=== PATIENT | female | born 1945 | race Caucasian/White ===

== ENCOUNTER 2016-12-19 10:43 | Outpatient (RCR) | payer MEDICARE, OTHER ==
[2016-12-19 11:06] LABS: BASOPHILS % (AUTO) 1 % (0-10); EOSINOPHILS # (AUTO) 0.3 10^3/uL (0.0-0.3); EOSINOPHILS % (AUTO) 6 % (0-10); LYMPHOCYTES # (AUTO) 1.6 X 10^3 (1.0-4.0); LYMPHOCYTES % (AUTO) 30 % (12-44); MEAN CORPUSCULAR HEMOGLOBIN 30 PG (25-34); MEAN CORPUSCULAR HGB CONC 35 G/DL (32-36); MEAN CORPUSCULAR VOLUME 85 FL (80-99); MEAN PLATELET VOLUME 9.4 FL (7.4-10.4); MONOCYTES # (AUTO) 0.4 X 10^3 (0.0-1.0); MONOCYTES % (AUTO) 8 % (0-12); NEUTROPHILS # (AUTO) 2.9 X 10^3 (1.8-7.8); NEUTROPHILS % (AUTO) 56 % (42-75); PLATELET COUNT 288 10^3/uL (130-400); RED BLOOD COUNT 4.58 10^6/uL (4.35-5.85); RED CELL DISTRIBUTION WIDTH 13.7 % (10.0-14.5); WHITE BLOOD COUNT 5.2 10^3/uL (4.3-11.0)
[2016-12-19 11:34] LABS: ALBUMIN 4.4 G/DL (3.2-4.5); BILIRUBIN,TOTAL 0.5 MG/DL (0.1-1.0); CALCIUM 9.5 MG/DL (8.5-10.1); CREATININE SERUM 1.02 MG/DL (0.60-1.30); POTASSIUM 3.8 MMOL/L (3.6-5.0); TOTAL PROTEIN 6.9 G/DL (6.4-8.2)
== END 2017-03-19 | disposition home or self-care (01) ==
LOC: ONC 10:43
PROVIDERS: ATTEND Internal Medicine Hematology & Oncology
DX: Z08 Encounter for follow-up examination after completed treatment for malignant neoplasm (principal); Z85.3 Personal history of malignant neoplasm of breast; Z92.21 Personal history of antineoplastic chemotherapy; Z92.3 Personal history of irradiation
CPT/HCPCS: 80053; 85025; 99213

== ENCOUNTER → 2016-12-19 | Outpatient (CLI) | payer MEDICARE, OTHER ==
[~2016-12-19] MED LIST: AC500T PO; CALC-80 PO; CHOL2000 PO; CLCX200C PO; DOXE25CA2 PO; DULO60CA6 PO; FEXO180T PO; HYDR-2856 PO; HYDR-3720 PO; HYDR-700 PO; IBUP-15 PO; LETR2.5T4 PO; LEVO125T6 PO; MAGN100T3 PO; MULTIVITAMIN PACKET PO; NEBI5TAB8 PO; NFR150C PO; OMEP40CA36 PO; TRAM50TA2 PO; ZLP10T PO
[2016-12-19 11:54] LABS: THYROID STIMULATING HORMONE 0.16 UIU/ML (0.35-4.94)
[2016-12-20 09:09] LABS: MICROALBUMIN/CREATININE RATIO 18.5 mg/gCR (0.0-30.0)
== END ==
LOC: LAB 10:35
PROVIDERS: ATTEND Internal Medicine
DX: Z00.00 Encounter for general adult medical examination without abnormal findings (principal); E11.65 Type 2 diabetes mellitus with hyperglycemia; E55.9 Vitamin D deficiency, unspecified; E78.5 Hyperlipidemia, unspecified; E03.2 Hypothyroidism due to medicaments and other exogenous substances
CPT/HCPCS: 36415; 80061; 82043; 82306; 83036; 84439; 84443

== ENCOUNTER → 2016-12-27 | Outpatient (CLI) | payer MEDICARE, OTHER ==
[~2016-12-27] MED LIST changes: +BARIUM SUSPENSION 2.1% (VANILLA SILQ) 450 ML PO ONE; +CATHETER FLUSH 10 ML SYR IV PRN; +IOHEXOL 350 MG/ML 100 ML (OMNIPAQUE 350) VIAL IV ONE; +NS 100 ML (IVPB) BAG IV ONE
--- NOTE | 2016-12-27 16:51 | Diagnostic Imaging Report ---
PROCEDURE: CT chest, abdomen, and pelvis with contrast. TECHNIQUE: Multiple contiguous axial images were obtained through the chest, abdomen, and pelvis after the administration of intravenous contrast. 100 mg of Omnipaque 350 was administered intravenously. INDICATION: Breast cancer. Right hip pain. COMPARISON: 10/29/14. FINDINGS: CT chest: The lungs demonstrate no significant consolidation, mass or suspicious nodule. The heart size is normal. There is a normal caliber of the thoracic aorta. No mediastinal mass or significantly enlarged lymph node is seen. No hilar lymphadenopathy. No axillary lymphadenopathy is noted. The osseous structures demonstrate degenerative changes in the lower thoracic spine. CT abdomen/pelvis: There is diffuse hepatic steatosis. No focal mass. The gallbladder, spleen, adrenal glands and pancreas appear unremarkable. The kidneys demonstrate symmetric enhancement and contrast excretion with no hydronephrosis. There is a 1.2 cm cystic lesion seen in the anterior mid right kidney slightly larger compared to 8 mm measurement from 10/29/2014 exam. No enhancing component to suggest a solid lesion, however, is seen. The abdominal aorta is normal in caliber. There is no bowel obstruction. There is no free fluid or fluid collection in the abdomen or pelvis. Slightly prominent left adnexa is seen, measuring 2.9 x 2 cm. When compared to PET CT of 06/29/2009, a lesion with similar dimensions is seen with minimal increase in size. Correlation with an MRI from 2008 suggests that this lesion is the ovary. The minimal change from 2009 is in favor of benign process. No definite lymphadenopathy or suspicious mass. Delayed phase images demonstrate irregular enhancement along the left side aspect of the urinary bladder. It is not well correlated with a specific abnormality in the arterial phase and is questioned to be artifact, particularly with the presence of significant beam-hardening artifacts from left hip replacement. Evaluation with bladder ultrasound is recommended. IMPRESSION: CT chest: 1. No suspicious mass or enlarged lymph nodes. CT abdomen and pelvis: 1. Hepatic steatosis. 2. Abnormal enhancement along the left side of the urinary bladder questioned to be artifactual. Urinary bladder ultrasound is recommended to rule out an underlying mucosal mass. Report was faxed to the office of [facility] [place] at 4:48 p.m., by jaqueline. Dictated by: Dictated on workstation # [id number]
--- NOTE | 2016-12-27 19:02 | Diagnostic Imaging Report ---
EXAMINATION: Whole body bone scan. TECHNIQUE: After the intravenous administration of 24 mCi of Technetium 99m MDP, whole body delayed phase bone scan images were obtained with lateral views of the head and neck and the chest regions. INDICATION: Breast cancer. COMPARISON: Correlation with prior bone scan of 10/29/2014 is reviewed. FINDINGS: There is decreased resolution on this exam, probably related to patient's body habitus. The area of increased uptake seen in the mid to lower thoracic spine noted on the previous exam appears less prominent on the current study with no definitive correlate on CT scan. This could be degenerative. No suspicious intense hypermetabolic activity is noted at this time particularly in the axial skeleton. Degenerative changes in the joints including the knees and in the feet seen. Urinary tract excretion is noted. IMPRESSION: Decreased resolution of imaging may relate to body habitus and other technical factors. No definite suspicious lesion identified. Dictated by: Dictated on workstation # [id number]
== END ==
LOC: CARD 12:08
PROVIDERS: ATTEND Nurse Practitioner Adult Health
DX: C50.112 Malignant neoplasm of central portion of left female breast (principal)
CPT/HCPCS: 71260; 74177; 78306

== ENCOUNTER → 2017-01-03 | Outpatient (CLI) | payer MEDICARE, OTHER ==
[~2017-01-03] MED LIST changes: -BARIUM SUSPENSION 2.1% (VANILLA SILQ) 450 ML PO ONE; -CATHETER FLUSH 10 ML SYR IV PRN; -IOHEXOL 350 MG/ML 100 ML (OMNIPAQUE 350) VIAL IV ONE; -NS 100 ML (IVPB) BAG IV ONE
--- NOTE | 2017-01-03 13:35 | Diagnostic Imaging Report ---
Ultrasound of the pelvis. INDICATION: Abnormal density along the left side of the urinary bladder seen on delayed phase imaging of CT scan. FINDINGS: The urinary bladder appears unremarkable with no mucosal thickening or mass identified. IMPRESSION: Unremarkable exam. The hyperdensity seen along the left wall of the urinary bladder is presumably artifactual. Dictated by: Dictated on workstation # [id number]
== END ==
LOC: RAD 12:00
PROVIDERS: ATTEND Nurse Practitioner Adult Health
DX: M54.9 Dorsalgia, unspecified (principal); R93.8 Abnormal findings on diagnostic imaging of other specified body structures
CPT/HCPCS: 76857

== ENCOUNTER → 2017-01-15 | Outpatient (CLI) | payer MEDICARE, OTHER ==
--- NOTE | 2017-01-15 16:36 | Diagnostic Imaging Report ---
PROCEDURE: MRI lumbar spine. TECHNIQUE: Multiplanar, multisequence MRI of the lumbar spine was performed without contrast. INDICATION: Back pain. COMPARISON: There are no prior studies available for comparison. FINDINGS: The T2 sagittal images do show slight (3 mm) anterior translation of L4 with respect to L5. The alignment of the other vertebral bodies is within normal limits. The intervertebral spaces are fairly well maintained, although there is desiccation of the discs at every level. The thecal sac is relatively generous and there is no significant central stenosis at any level. However, there is moderate narrowing of the neuroforamen bilaterally at L3-L4 and L4-L5, particularly on the right. There is no other evidence for neuroforaminal narrowing. There is no abnormal signal arising from the cord or other vertebral bodies to indicate an acute abnormality. There is no paraspinal mass visualized. IMPRESSION: 1. There is slight anterior translation of L4 with respect to L5. While there is no evidence for central stenosis at this level, there is narrowing of the neuroforamen bilaterally, particularly on the right at this level. There is also narrowing of the neuroforamen bilaterally at L3-L4, again more so on the right. 2. The remainder of the lumbar spine is unremarkable for spinal stenosis or nerve root encroachment. 3. There is no sign of an acute bony abnormality or of a cord lesion. Dictated by: Dictated on workstation # [id number]
== END ==
LOC: RAD 15:04
PROVIDERS: ATTEND Orthopaedic Surgery
DX: M47.816 Spondylosis without myelopathy or radiculopathy, lumbar region (principal)
CPT/HCPCS: 72148

== ENCOUNTER 2017-12-23 10:00 | Outpatient (RCR) | payer MEDICARE, OTHER ==
[2017-12-23 10:02] LABS: BASOPHILS # (AUTO) 0.1 10^3/uL (0.0-0.1); BASOPHILS % (AUTO) 1 % (0-10); EOSINOPHILS # (AUTO) 0.3 10^3/uL (0.0-0.3); EOSINOPHILS % (AUTO) 6 % (0-10); HEMATOCRIT 39 % (35-52); HEMOGLOBIN 13.5 G/DL (11.5-16.0); LYMPHOCYTES # (AUTO) 1.6 X 10^3 (1.0-4.0); LYMPHOCYTES % (AUTO) 30 % (12-44); MEAN CORPUSCULAR HEMOGLOBIN 30 PG (25-34); MEAN CORPUSCULAR HGB CONC 34 G/DL (32-36); MEAN CORPUSCULAR VOLUME 88 FL (80-99); MEAN PLATELET VOLUME 9.9 FL (7.4-10.4); MONOCYTES # (AUTO) 0.4 X 10^3 (0.0-1.0); MONOCYTES % (AUTO) 8 % (0-12); NEUTROPHILS # (AUTO) 2.9 X 10^3 (1.8-7.8); NEUTROPHILS % (AUTO) 54 % (42-75); PLATELET COUNT 252 10^3/uL (130-400); RED BLOOD COUNT 4.48 10^6/uL (4.35-5.85); RED CELL DISTRIBUTION WIDTH 13.1 % (10.0-14.5); WHITE BLOOD COUNT 5.3 10^3/uL (4.3-11.0)
[2017-12-23 10:27] LABS: ALBUMIN 4.4 GM/DL (3.2-4.5); BILIRUBIN,TOTAL 0.6 MG/DL (0.1-1.0); CALCIUM 9.5 MG/DL (8.5-10.1); CREATININE SERUM 0.98 MG/DL (0.60-1.30); POTASSIUM 3.7 MMOL/L (3.6-5.0)
== END 2018-03-23 | disposition home or self-care (01) ==
LOC: ONC 10:00
PROVIDERS: ATTEND Internal Medicine Hematology & Oncology
DX: Z08 Encounter for follow-up examination after completed treatment for malignant neoplasm (principal); Z85.3 Personal history of malignant neoplasm of breast; Z92.21 Personal history of antineoplastic chemotherapy; Z92.3 Personal history of irradiation; I89.0 Lymphedema, not elsewhere classified; Z79.899 Other long term (current) drug therapy
CPT/HCPCS: 36415; 80053; 85025; 99213

== ENCOUNTER → 2017-12-30 | Outpatient (CLI) | payer MEDICARE, OTHER ==
--- NOTE | 2017-12-30 13:13 | Diagnostic Imaging Report ---
INDICATION: Routine screening. COMPARISON: 09/11/2016, 02/24/2015. TECHNIQUE: Screening digital mammography was performed bilaterally with a Computer Aided Detection (CAD) system. FINDINGS: Both breasts are heterogeneously dense, limiting the sensitivity of mammography. Circumscribed nodular densities in the right breast appear stable. No spiculated mass or malignant-appearing microcalcifications are seen. There are benign calcifications. A surgical clip on the left is noted. The axillae are unremarkable. IMPRESSION: No mammographic features suspicious for malignancy are identified. ACR BI-RADS Category 2: Benign findings. Result letter will be mailed to the patient. Note: At least 10% of breast cancer is not imaged by mammography. Dictated by: Dictated on workstation # [id number]
== END ==
LOC: RAD 11:06
PROVIDERS: ATTEND Internal Medicine Hematology & Oncology
DX: Z12.31 Encounter for screening mammogram for malignant neoplasm of breast (principal)
CPT/HCPCS: 77067

== ENCOUNTER → 2019-01-15 | Outpatient (CLI) | payer MEDICARE, OTHER ==
[2019-01-15 13:49] LABS: BASOPHILS % (AUTO) 0 % (0-10); EOSINOPHILS # (AUTO) 0.2 10^3/uL (0.0-0.3); EOSINOPHILS % (AUTO) 4 % (0-10); HEMATOCRIT 36 % (35-52); HEMOGLOBIN 12.6 G/DL (11.5-16.0); LYMPHOCYTES # (AUTO) 1.7 X 10^3 (1.0-4.0); LYMPHOCYTES % (AUTO) 32 % (12-44); MEAN CORPUSCULAR HEMOGLOBIN 30 PG (25-34); MEAN CORPUSCULAR HGB CONC 35 G/DL (32-36); MEAN CORPUSCULAR VOLUME 86 FL (80-99); MEAN PLATELET VOLUME 9.6 FL (7.4-10.4); MONOCYTES # (AUTO) 0.4 X 10^3 (0.0-1.0); MONOCYTES % (AUTO) 8 % (0-12); NEUTROPHILS # (AUTO) 3.1 X 10^3 (1.8-7.8); NEUTROPHILS % (AUTO) 56 % (42-75); PLATELET COUNT 275 10^3/uL (130-400); RED CELL DISTRIBUTION WIDTH 13.6 % (10.0-14.5); WHITE BLOOD COUNT 5.5 10^3/uL (4.3-11.0)
[2019-01-15 14:06] LABS: ALBUMIN 4.3 GM/DL (3.2-4.5); BILIRUBIN,TOTAL 0.5 MG/DL (0.1-1.0); CALCIUM 9.7 MG/DL (8.5-10.1); CREATININE SERUM 0.93 MG/DL (0.60-1.30); POTASSIUM 3.9 MMOL/L (3.6-5.0); TOTAL PROTEIN 6.7 GM/DL (6.4-8.2)
== END ==
LOC: EDSTATUS 03-24 13:28 → ONC 13:39
PROVIDERS: ATTEND Internal Medicine Hematology & Oncology
DX: Z08 Encounter for follow-up examination after completed treatment for malignant neoplasm (principal); Z85.3 Personal history of malignant neoplasm of breast; Z92.21 Personal history of antineoplastic chemotherapy; Z92.3 Personal history of irradiation; I89.0 Lymphedema, not elsewhere classified; Z79.899 Other long term (current) drug therapy
CPT/HCPCS: 36415; 80053; 85025; 99213

== ENCOUNTER → 2019-01-30 | Outpatient (CLI) | payer MEDICARE, OTHER ==
--- NOTE | 2019-01-30 12:50 | Diagnostic Imaging Report ---
Indication: Routine screening. Comparison is made with prior mammogram from 12/30/2017 and 09/11/2016. 2-D and 3-D bilateral screening mammography was performed with CAD. Both breasts remain heterogeneously dense, limiting the sensitivity of mammography. Benign calcific lesions are noted. There are also numerous circumscribed nodular densities, most suggestive of benign etiology. There is a clip in the retroareolar left breast. No spiculated mass or malignant-appearing microcalcifications are seen. Axillae are unremarkable. Impression: BI-RADS category 2 No mammographic features suspicious for malignancy are identified. ACR BI-RADS Category 2: Benign findings. Result letter will be mailed to the patient. Note: At least 10% of breast cancer is not imaged by mammography. Dictated by: Dictated on workstation # [id number]
== END ==
LOC: RAD 08:31
PROVIDERS: ATTEND Internal Medicine Hematology & Oncology
DX: Z12.31 Encounter for screening mammogram for malignant neoplasm of breast (principal); C50.112 Malignant neoplasm of central portion of left female breast
CPT/HCPCS: 77067

== ENCOUNTER → 2020-03-09 | Outpatient (CLI) | payer MEDICARE, OTHER ==
--- NOTE | 2020-03-09 13:16 | Diagnostic Imaging Report ---
INDICATION: Routine screening. COMPARISON: 01/30/2019 and 12/30/2017. TECHNIQUE: 2D and 3D bilateral screening mammography was performed with CAD. FINDINGS: Both breasts remain heterogeneously dense, limiting the sensitivity of mammography. The circumscribed nodular densities previously noted in the right breast appear stable. There are benign calcifications bilaterally. Post-therapeutic changes in the left breast are noted and appear stable. No spiculated mass or malignant appearing microcalcifications are seen. The axillae are unremarkable. IMPRESSION: No mammographic features suspicious for malignancy are identified. ACR BI-RADS Category 2: Benign findings. Result letter will be mailed to the patient. Note: At least 10% of breast cancer is not imaged by mammography. Dictated by: Dictated on workstation # [id number]
== END ==
LOC: RAD 09:55
PROVIDERS: ATTEND Internal Medicine Hematology & Oncology
DX: Z12.31 Encounter for screening mammogram for malignant neoplasm of breast (principal)
CPT/HCPCS: 77063; 77067

== ENCOUNTER → 2020-03-09 | Outpatient (CLI) | payer MEDICARE, OTHER ==
[~2020-03-09] MED LIST changes: +CATHETER FLUSH 10 ML SYR IV PRN
== END ==
LOC: CARD 09:56
PROVIDERS: ATTEND Physician Assistant
DX: I10 Essential (primary) hypertension (principal); I51.89 Other ill-defined heart diseases; R06.02 Shortness of breath; Z91.89 Other specified personal risk factors, not elsewhere classified; Z82.49 Family history of ischemic heart disease and other diseases of the circulatory system
CPT/HCPCS: 93306